=== PATIENT | male | born 1985 | race Asian ===

== ENCOUNTER 2022-02-20 11:59 | Emergency (ER) | payer OTHER ==
[~2022-02-20] VITALS: Ht 167.6 cm; Wt 79.4 kg
[2022-02-20 12:03] VITALS: BP 148/90
[2022-02-20] MEDS ORDERED: RALT400T PO (12:35)
[2022-02-20] MEDS ORDERED: EMTR1TAB12 PO (12:35)
--- NOTE | 2022-02-20 12:47 | NUR ---
36/M PRESENTS FOR NEEDLESTICK DURING PATIENT PROCEDURE TODAY. DENIES PAIN, NO SIGNS OF BLEEDING AT SITE.
--- NOTE | 2022-02-20 14:14 | NUR ---
Patient discharged with v/s stable. Written and verbal after care instructions ABOUT NEEDLESTICK AND [employer]URY given and explained. Patient alert, oriented and verbalized understanding of instructions. Ambulatory with steady gait. All questions addressed prior to discharge. ID band removed. Patient advised to follow up with PMD. Rx of SAMM SILVA given. Patient educated on indication of medication including possible reaction and side effects. Opportunity to ask questions provided and answered.
[2022-02-21 09:07] LABS: HEPATITIS B SURFACE ANTIGEN Negative (Negative)
== END 2022-02-20 14:14 | disposition home or self-care (01) ==
LOC: MED 11:59
DX: S69.92XA Unspecified injury of left wrist, hand and finger(s), initial encounter (principal); W46.1XXA Contact with contaminated hypodermic needle, initial encounter; Y93.89 Activity, other specified; Y92.89 Other specified places as the place of occurrence of the external cause; Y99.8 Other external cause status
CPT/HCPCS: 36415; 86592; 86702; 86803; 87340; 99283